=== PATIENT | male | born 1980 | race Caucasian/White ===

== ENCOUNTER 2018-10-01 09:57 | Inpatient (IN) ==
[2018-10-01] MEDS ORDERED: ALBUTEROL/IPRATROPIUM 3 ML NEB RESP TX STA (10:32)
[2018-10-01 11:20] LABS: Basophils % 0.2 % (0.0-0.8); Eosinophils # 0.1 10*3/uL (0.0-0.87); Eosinophils % 0.8 % (0.00-10.9); Hematocrit 41.5 VOL% (42.0-52.0); Hemoglobin 13.5 GM/DL (14.0-18.0); Immature Granulocytes % 0.5 %; Immature Granulocytes Absolute 0.04 #; Lymphocytes # 0.4 10*3/uL (1.4-4.0); Lymphocytes % 4.2 % (21.2-54.2); Mean Corpuscular HGB Conc 32.5 GM/DL (32-36); Mean Corpuscular Hemoglobin 26 PG (27-34); Mean Platelet Volume 9.1 FL (9.6-12.0); Monocytes # 0.5 10*3/uL (0.11-0.8); Neutrophils # 7.5 10*3/uL (1.4-7.4); Neutrophils % 88.3 % (38.7-73.9); Platelet Count 143 T/CUMM (130-400); Red Blood Count 5.19 MC/CUMM (3.8-5.5); Red Cell Distribution Width 14.1 % (9.3-17.3); White Blood Count 8.5 T/CUMM (4-12)
[2018-10-01 11:27] LABS: ABG Base Excess 2.3 MMOL/L (-2.5-2.5); ABG HCO3 26.3 MMOL/L (20-26); ABG PCO2 41.5 MM HG (35-48); ABG PH 7.421 (7.35-7.45); ABG PO2 70.2 MM HG (80-95); ABG TCO2 23.3 MMOL/L (23-27)
[2018-10-01] MEDS ORDERED: ALBUTEROL NEB SOLN 5 MG/ML 20 ML/BOTTLE CONT NEB STA (11:40)
[2018-10-01 11:46] LABS: Albumin 3.4 G/DL (3.4-5.0); Bilirubin,Total 1.1 MG/DL (0.2-1.0); Calcium 8.8 MG/DL (8.5-10.1); Potassium 3.5 MMOL/L (3.5-5.1); Total Protein 7.7 G/DL (6.4-8.3)
[2018-10-01 11:50] LABS: Band Neutrophils 4 % (0-10); Eosinophils 1 % (0-10); Lymphocytes 3 % (20-55); Platelet Estimate Normal; Segmented Neutrophils 84 % (50-85); Total Cells Counted 100
[2018-10-01 11:51] LABS: Hypochromasia 1+
[2018-10-01] MEDS ORDERED: SODIUM CHLORIDE 0.9% 1,000 ML IV STA ×2 (13:20→14:34)
[2018-10-01] MEDS ORDERED: HYDROCORTISONE 100 MG VIAL IV STA (13:53)
[2018-10-01] MEDS ORDERED: ACETAMINOPHEN 325 MG TABLET PO PRN (14:47)
[2018-10-01] MEDS ORDERED: ALBUTEROL 2.5 MG/3 ML NEB RESP TX PRN (14:47)
[2018-10-01] MEDS ORDERED: ONDANSETRON 4 MG/2 ML VIAL IV PRN (14:47)
[2018-10-01] MEDS ORDERED: DEXTROSE 50% 25 GM/50 ML VIAL IV PRN (16:30)
[2018-10-01] MEDS ORDERED: GLUCAGON 1 MG VIAL IM PRN (16:30)
[2018-10-01] MEDS: SODIUM CHLORIDE 0.9% 1,000 ML IV SCH (16:57)
[2018-10-01] MEDS: ENOXAPARIN 40 MG/0.4 ML SYRINGE SUBCUT SCH (16:58)
[2018-10-01] MEDS: methylPREDNISolone SOD SUC 125 MG/2 ML VIAL IV SCH ×2 (17:00→23:46)
[2018-10-01] MEDS: INSULIN LISPRO 100 UNIT/ML SUBCUT SCH ×2 (17:03→20:26)
[2018-10-01] MEDS: metFORMIN 500 MG TABLET PO SCH (17:04)
[2018-10-01] MEDS: GLIMEPIRIDE 4 MG TABLET PO SCH (17:04)
[2018-10-01 20:16] LABS: Apearance,Urine CLEAR (Clear); Bilirubin,Urine Negative (Negative); Blood, Urine Negative (Negative); Glucose,Urine (UA) >=500 mg/dL (Negative); Ketones,Urine 5 mg/dL (Negative); Mucus,Urine Occasional /LPF (Occasional); Nitrite,Urine Negative (Negative); Protein,Urine Negative; RBC,Urine <1 /HPF (0-4); Urine Color Yellow (Yellow); Urine Specific Gravity 1.016 (1.001-1.035); Urine Urobilinogen < 2.0 EU/DL (0.2-1.0); WBC,Urine 2 /HPF (0-6)
[2018-10-01] MEDS: SIMVASTATIN 10 MG TABLET PO SCH (20:26)
[2018-10-02] MEDS: SODIUM CHLORIDE 0.9% 1,000 ML IV SCH ×2 (02:57→12:58)
[2018-10-02 03:57] LABS: Basophils % 0.2 % (0.0-0.8); Hematocrit 38.1 VOL% (42.0-52.0); Hemoglobin 12.1 GM/DL (14.0-18.0); Immature Granulocytes % 0.8 %; Immature Granulocytes Absolute 0.05 #; Lymphocytes # 0.5 10*3/uL (1.4-4.0); Lymphocytes % 8.4 % (21.2-54.2); Mean Corpuscular HGB Conc 31.8 GM/DL (32-36); Mean Corpuscular Hemoglobin 25 PG (27-34); Mean Platelet Volume 9.2 FL (9.6-12.0); Monocytes # 0.2 10*3/uL (0.11-0.8); Monocytes % 2.8 % (1.7-12.7); Neutrophils # 5.6 10*3/uL (1.4-7.4); Neutrophils % 87.8 % (38.7-73.9); Platelet Count 154 T/CUMM (130-400); Red Blood Count 4.76 MC/CUMM (3.8-5.5); Red Cell Distribution Width 14.3 % (9.3-17.3); White Blood Count 6.4 T/CUMM (4-12)
[2018-10-02 04:41] LABS: Calcium 8.5 MG/DL (8.5-10.1); Osmolality,Calculated 285.7 MOS/KG (273-304); Potassium 3.2 MMOL/L (3.5-5.1); Risk Ratio 3.53; Thyroid Stimulating Hormone 0.133 uIU/ml (0.358-3.74); VLDL CHOLESTEROL 23.2 MG/DL
[2018-10-02] MEDS: GLIMEPIRIDE 4 MG TABLET PO SCH ×2 (08:13→18:17)
[2018-10-02] MEDS: metFORMIN 500 MG TABLET PO SCH ×2 (08:13→18:17)
[2018-10-02] MEDS: INSULIN LISPRO 100 UNIT/ML SUBCUT SCH ×4 (08:15→20:34)
[2018-10-02] MEDS: methylPREDNISolone SOD SUC 125 MG/2 ML VIAL IV SCH ×2 (08:16→18:17)
[2018-10-02] MEDS: ASPIRIN EC 81 MG TABLET PO SCH (09:03)
[2018-10-02] MEDS: sitaGLIPtin 100 MG TABLET PO SCH (09:03)
[2018-10-02] MEDS: PANTOPRAZOLE 40 MG TABLET PO SCH (09:03)
[2018-10-02] MEDS: MONTELUKAST 10 MG TABLET PO SCH (09:03)
[2018-10-02] MEDS ORDERED: AZITHROMYCIN 250 MG TABLET PO ONE (12:28)
[2018-10-02] MEDS: ALBUTEROL 2.5 MG/3 ML NEB RESP TX SCH ×3 (12:37→19:53)
[2018-10-02] MEDS: ENOXAPARIN 40 MG/0.4 ML SYRINGE SUBCUT SCH (18:18)
[2018-10-02] MEDS: SIMVASTATIN 10 MG TABLET PO SCH (20:23)
[2018-10-03] MEDS: ALBUTEROL 2.5 MG/3 ML NEB RESP TX SCH ×7 (00:20→23:15)
[2018-10-03] MEDS: methylPREDNISolone SOD SUC 125 MG/2 ML VIAL IV SCH ×4 (00:46→23:34)
[2018-10-03 06:12] LABS: Basophils % 0.1 % (0.0-0.8); Hemoglobin 12.2 GM/DL (14.0-18.0); Immature Granulocytes % 0.7 %; Immature Granulocytes Absolute 0.07 #; Lymphocytes # 0.5 10*3/uL (1.4-4.0); Lymphocytes % 5.4 % (21.2-54.2); Mean Corpuscular HGB Conc 31.3 GM/DL (32-36); Mean Corpuscular Hemoglobin 26 PG (27-34); Mean Corpuscular Volume 81.6 FL (87-102); Mean Platelet Volume 9.3 FL (9.6-12.0); Monocytes # 0.2 10*3/uL (0.11-0.8); Monocytes % 2.2 % (1.7-12.7); Neutrophils # 9.1 10*3/uL (1.4-7.4); Neutrophils % 91.6 % (38.7-73.9); Platelet Count 243 T/CUMM (130-400); Red Blood Count 4.78 MC/CUMM (3.8-5.5); Red Cell Distribution Width 14.6 % (9.3-17.3)
[2018-10-03 06:33] LABS: Calcium 8.6 MG/DL (8.5-10.1); Osmolality,Calculated 291.3 MOS/KG (273-304); Potassium 3.7 MMOL/L (3.5-5.1)
[2018-10-03 06:45] LABS: Hypochromasia 1+; Lymphocytes 4 % (20-55); Platelet Estimate Adequate; Segmented Neutrophils 94 % (50-85); Total Cells Counted 100
[2018-10-03] MEDS: INSULIN LISPRO 100 UNIT/ML SUBCUT SCH ×4 (08:05→23:27)
[2018-10-03] MEDS: sitaGLIPtin 100 MG TABLET PO SCH (08:07)
[2018-10-03] MEDS: metFORMIN 500 MG TABLET PO SCH ×2 (08:07→16:02)
[2018-10-03] MEDS: ASPIRIN EC 81 MG TABLET PO SCH (08:07)
[2018-10-03] MEDS: AZITHROMYCIN 250 MG TABLET PO SCH (08:07)
[2018-10-03] MEDS: GLIMEPIRIDE 4 MG TABLET PO SCH ×2 (08:07→16:02)
[2018-10-03] MEDS: MONTELUKAST 10 MG TABLET PO SCH (08:07)
[2018-10-03] MEDS: PANTOPRAZOLE 40 MG TABLET PO SCH (08:07)
[2018-10-03] MEDS: ENOXAPARIN 40 MG/0.4 ML SYRINGE SUBCUT SCH (14:25)
[2018-10-03] MEDS: METOPROLOL TARTRATE 25 MG TABLET PO SCH (23:27)
[2018-10-03] MEDS: SIMVASTATIN 10 MG TABLET PO SCH (23:27)
[2018-10-04] MEDS: ALBUTEROL 2.5 MG/3 ML NEB RESP TX SCH ×6 (02:54→23:15)
[2018-10-04 06:18] LABS: Basophils % 0.2 % (0.0-0.8); Immature Granulocytes % 0.7 %; Immature Granulocytes Absolute 0.04 #; Lymphocytes # 0.6 10*3/uL (1.4-4.0); Mean Corpuscular HGB Conc 30.8 GM/DL (32-36); Mean Corpuscular Hemoglobin 25 PG (27-34); Mean Corpuscular Volume 80.7 FL (87-102); Mean Platelet Volume 9.3 FL (9.6-12.0); Monocytes # 0.2 10*3/uL (0.11-0.8); Monocytes % 3.5 % (1.7-12.7); Neutrophils # 5.2 10*3/uL (1.4-7.4); Neutrophils % 85.6 % (38.7-73.9); Platelet Count 278 T/CUMM (130-400); Red Blood Count 4.83 MC/CUMM (3.8-5.5); Red Cell Distribution Width 14.5 % (9.3-17.3); White Blood Count 6.1 T/CUMM (4-12)
[2018-10-04 06:54] LABS: Calcium 8.1 MG/DL (8.5-10.1); Osmolality,Calculated 281.7 MOS/KG (273-304); Potassium 4.3 MMOL/L (3.5-5.1)
[2018-10-04] MEDS: INSULIN LISPRO 100 UNIT/ML SUBCUT SCH ×4 (08:23→22:10)
[2018-10-04] MEDS: methylPREDNISolone SOD SUC 125 MG/2 ML VIAL IV SCH ×2 (08:23→16:28)
[2018-10-04] MEDS: GLIMEPIRIDE 4 MG TABLET PO SCH ×2 (08:24→16:27)
[2018-10-04] MEDS: AZITHROMYCIN 250 MG TABLET PO SCH (08:24)
[2018-10-04] MEDS: sitaGLIPtin 100 MG TABLET PO SCH (08:24)
[2018-10-04] MEDS: ASPIRIN EC 81 MG TABLET PO SCH (08:24)
[2018-10-04] MEDS: metFORMIN 500 MG TABLET PO SCH ×2 (08:24→16:27)
[2018-10-04] MEDS: METOPROLOL TARTRATE 25 MG TABLET PO SCH ×2 (08:24→22:10)
[2018-10-04] MEDS: PANTOPRAZOLE 40 MG TABLET PO SCH (08:24)
[2018-10-04] MEDS: MONTELUKAST 10 MG TABLET PO SCH (08:24)
[2018-10-04] MEDS: ENALAPRIL 10 MG TABLET PO SCH (12:12)
[2018-10-04] MEDS: ENOXAPARIN 40 MG/0.4 ML SYRINGE SUBCUT SCH (16:28)
[2018-10-04] MEDS: SIMVASTATIN 10 MG TABLET PO SCH (22:10)
[2018-10-05] MEDS: methylPREDNISolone SOD SUC 125 MG/2 ML VIAL IV SCH ×2 (02:21→09:45)
[2018-10-05] MEDS: ALBUTEROL 2.5 MG/3 ML NEB RESP TX SCH ×3 (02:50→10:03)
[2018-10-05] MEDS: INSULIN LISPRO 100 UNIT/ML SUBCUT SCH (09:35)
[2018-10-05] MEDS: MONTELUKAST 10 MG TABLET PO SCH (09:45)
[2018-10-05] MEDS: sitaGLIPtin 100 MG TABLET PO SCH (09:45)
[2018-10-05] MEDS: METOPROLOL TARTRATE 25 MG TABLET PO SCH (09:45)
[2018-10-05] MEDS: AZITHROMYCIN 250 MG TABLET PO SCH (09:45)
[2018-10-05] MEDS: metFORMIN 500 MG TABLET PO SCH (09:45)
[2018-10-05] MEDS: ASPIRIN EC 81 MG TABLET PO SCH (09:45)
[2018-10-05] MEDS: GLIMEPIRIDE 4 MG TABLET PO SCH (09:46)
[2018-10-05] MEDS: PANTOPRAZOLE 40 MG TABLET PO SCH (09:46)
[2018-10-05] MEDS: ENALAPRIL 10 MG TABLET PO SCH (09:46)
[2018-10-05 13:55] VITALS: BP 133/88
== END 2018-10-05 11:54 | disposition home or self-care (01) | DRG 315 ==
LOC: N.ED 09:57 → SUATTDRO 14:47 → N.EDINP 14:47 → N.CC 15:27 → N.5E 10-02 15:55
PROVIDERS: ADMIT Internal Medicine; ATTEND Emergency Medicine